=== PATIENT | female | born 1995 | race Caucasian/White ===

== ENCOUNTER 2016-10-18 10:53 | Emergency (ER) | payer BC, OTHER ==
[2016-10-18 11:00] VITALS: BP 110/69; PULSE 89; TEMP 98; BMI 20.5
--- NOTE | 2016-10-18 11:28 | PDOC ---
History of Present Illness - General Chief Complaint: Psychiatric Stated Complaint: SOB Time Seen by Provider: 10/18/16 10:55 History Source: Patient Exam Limitations: No Limitations - History of Present Illness Initial Comments: 10/18/16 11:29 This is a 21-year-old female with a prior history of alcoholism (sober for 2 years) who presents to the emergency department with a complaint of chest pain and shortness of breath. Patient states her symptoms began approximately 9 days ago, while doing nothing in particular. At that time she noted midsternal pressure which she rates 5/10, pain is intermittent, pain associated with shortness of breath. When her symptoms had not improved she was seen at an outside hospital's emergency department 5 days ago. At that time she had labs, chest x-ray, EKG. Patient reports that the chest x-ray showed "constricted lungs". She was discharged on albuterol inhaler which she has been taking every 4 hours. She states the albuterol has minimally helps her symptoms. Patient states that while at home she felt a little bit better but her symptoms never completely resolved. She returned to work today and she noted that her symptoms were very severe. Her coworkers recommended that she have a CAT scan to rule out pulmonary embolism. Patient states that her symptoms worsen with exertion, she has had a cold sweat. She denies nausea or vomiting. She denies recent travel. She denies cough, upper respiratory symptoms. PMH: Alcoholism, anxiety PSH: Denies Medication: buspar, prozac ALL: Azithromycin Social: denies drug use, (+) tobacco use (for the past 3 years, pt decreasing amount, now smoking 6 per day), denies alcohol use GENERAL/CONSTITUTIONAL: No: fever, chills, weakness, loss of appetite. HEAD, EYES, EARS, NOSE AND THROAT: No: change in vision, ear pain, discharge, sore throat, throat swelling. CARDIOVASCULAR: Yes: chest pain, No: lightheadedness, palpitations, syncope RESPIRATORY: Yes:shortness of breath No: cough, wheezing GASTROINTESTINAL: No: nausea, vomiting, abdominal pain GENITOURINARY: No: dysuria, hematuria, frequency, urgency, flank pain. MUSCULOSKELETAL: No: back pain, neck pain, joint pain, muscle swelling or pain SKIN AND BREASTS: No: lesions, pallor, rash or easy bruising. NEUROLOGIC: No: headache, vertigo, paresthesias, weakness ENDOCRINE: No: unexplained weight gain or loss HEMATOLOGIC/LYMPHATIC: No: anemia, easy bleeding, swelling nodes. GENERAL: The patient is in no acute distress, pt appears anxious and breathless. HEAD: Normal with no signs of trauma. EYES: PERRLA, EOMI, sclera anicteric, conjunctiva clear. ENT: Ears normal, nares patent, oropharynx clear without exudates. Moist mucous membranes. NECK: Normal range of motion, supple without lymphadenopathy, JVD, or masses. LUNGS: Breath sounds equal, clear to auscultation bilaterally. No wheezes, and no crackles. HEART:Regular rate and rhythm, normal S1 and S2 without murmur, rub or gallop. Chest wall tendern to palpation ABDOMEN: Soft, nontender, normoactive bowel sounds. No guarding, no rebound. No masses palpable. EXTREMITIES: Normal range of motion, no edema. No clubbing or cyanosis. No erythema, or tenderness. NEUROLOGICAL: Cranial nerves II through XII grossly intact. Normal speech. No focal neurological deficits. MUSCULOSKELETAL: Back non-tender to palpation, no CVA tenderness SKIN: Warm, Dry, normal turgor, no rashes or lesions noted. Past History - Past Medical History Allergies/Adverse Reactions: Allergies Allergy/AdvReac Type Severity Reaction Status Date / Time azithromycin [From Zithromax] Allergy Verified 10/18/16 10:55 Home Medications: Ambulatory Orders Buspirone HCl [Buspar -] 30 mg PO DAILY 10/18/16 Fluoxetine HCl [Prozac] 40 mg PO DAILY 10/18/16 Psychiatric Problems: Yes Other medical history: ALCOHOLISM - Psycho/Social/Smoking Cessation Hx Anxiety: Yes Suicidal Ideation: No Smoking History: Current every day smoker Number of Cigarettes Smoked Daily: 6 Information on smoking cessation initiated: Yes 'Breaking Loose' booklet given: 10/18/16 Hx Alcohol Use: Yes Drug/Substance Use Hx: Yes (ADDERAL) Substance Use Type: Alcohol, Prescribed *Physical Exam - Vital Signs Last Vital Signs Temp Pulse Resp BP Pulse Ox 98 F 89 16 110/69 100 10/18/16 10:54 10/18/16 10:54 10/18/16 10:54 10/18/16 10:54 10/18/16 10:54 Heart Score/ECG Review #1 ECG reviewed & interpreted by me at: 11:35 General ECG Interpretation: Sinus Rhythm, Normal Rate, Normal Intervals, No acute ischemic changes ED Treatment Course - LABORATORY CBC & Chemistry Diagram: 10/18/16 11:30 10/18/16 11:30 Medical Decision Making - Medical Decision Making 10/18/16 11:34 Will do labs including d dimer Will repeat cxr Will re assess Will NOT give an anxiolytic given pt h/o substance abuse 10/18/16 12:19 Laboratory Tests 10/18/16 10/18/16 11:30 11:30 WBC 5.6 Hgb 12.5 Hct 36.3 Plt Count 245 Neutrophils % 59.5 Lymphocytes % 28.8 Sodium 133 L Potassium 3.4 L Chloride 105 Carbon Dioxide 24 BUN 17 Creatinine 0.7 Random Glucose 71 L 10/18/16 12:46 Laboratory Tests 10/18/16 11:30 Creatine Kinase 76 Troponin I < 0.03 L 10/18/16 13:57 Laboratory Tests 10/18/16 10/18/16 10/18/16 11:30 11:30 11:30 WBC 5.6 Hgb 12.5 Hct 36.3 Plt Count 245 Neutrophils % 59.5 Lymphocytes % 28.8 D-Dimer < 200 BUN Creatinine Creatine Kinase Troponin I Serum , Qual Negative 10/18/16 10/18/16 11:30 11:30 WBC Hgb Hct Plt Count Neutrophils % Lymphocytes % D-Dimer BUN 17 Creatinine 0.7 Creatine Kinase 76 Troponin I < 0.03 L Serum , Qual 10/18/16 14:09 Upon re assessment, pt states she continues to feel chest pressure and short of breath Will contact pt PMD Pt mother present with patient, states she has already had an xray which was negative 10/18/16 14:10 10/18/16 15:27 Case reviewed with pt PMD who reports that PT CXR was normal Her impression is that the patients symptoms may be the result of Anxiety Recommended given something for anxiety and follow up Pulm I have reviewed this with the patient She does not want anxiolytics given her history Pt ambulated [id number] remain 100% Will discharge to home Call PMD now for follow up and Pulm referral Clinical Impression: breathlessness 10/18/16 15:39 *DC/Admit/Observation/Transfer Diagnosis at time of Disposition: Shortness of breath - Discharge Dispostion Disposition: HOME Condition at time of disposition: Stable Admit: No - Patient Instructions Printed Discharge Instructions: DI for Shortness of Breath, How to Manage Shortness of Breath Additional Instructions: Josselyn Thank you for coming in to the ER today I am sorry that you are feeling short of breath and having this pain Please contact Dr Andrade for pulmonary follow up today Please follow up with your primary doctor within 3 days Please also follow up with the doctor managing your standing medications Perhaps there is some adjustment that can be made with those medications Please return to the ER for worsening symptoms, new symptoms, any other concerns or complaints - Post Discharge Activity Work/School Note: Back to Work
[2016-10-18 11:45] LABS: BASOPHIL 0.7 % (0-2.0); EOSINOPHIL 2.8 % (0-4.5); MCH 28.3 pg (25.7-33.7); MCHC 34.3 g/dl (32.0-36.0); MEAN CELL VOLUME 82.5 fl (80-96); MEAN PLT VOLUME 8.6 fl (7.5-11.1); NEUTROPHILS 59.5 % (42.8-82.8); PLATELET COUNT 245 K/MM3 (134-434); RDW 12.8 % (11.6-15.6); WHITE BLOOD COUNT 5.6 K/mm3 (4.0-10.0)
[2016-10-18 12:06] LABS: ALBUMIN 3.9 g/dl (3.5-5.0); ALK PHOS 45 U/L (32-92); ANION GAP 4 (8-16); BILIRUBIN,TOTAL 0.5 mg/dl (0.2-1.0); CALCIUM 8.9 mg/dl (8.4-10.2); CO2 24 mmol/L (22-28); CPK(DFH) 76 IU/L (26-140); CREATININE 0.7 mg/dl (0.6-1.3); GLUCOSE,RANDOM 71 mg/dl (74-106); SGOT/AST 28 U/L (10-42); SGPT/ALT 12 U/L (10-40); TOT PROT 6.6 g/dl (6.4-8.3)
[2016-10-18 12:27] LABS: TROPONIN I (DFP) < 0.03 ng/ml (0.03-0.50)
--- NOTE | 2016-10-18 18:42 | EKG ---
Test Reason : Blood Pressure : / mmHG Vent. Rate : 082 BPM Atrial Rate : 082 BPM P-R Int : 136 ms QRS Dur : 084 ms QT Int : 392 ms P-R-T Axes : 067 072 040 degrees QTc Int : 457 ms NORMAL SINUS RHYTHM NORMAL ECG NO PREVIOUS ECGS AVAILABLE Confirmed by TORIBIO GUERRA MD ([id number] on 10/18/2016 6:42:15 PM Referred By: DARRELL FRITZ Confirmed By:TORIBIO GUERRA MD
== END 2016-10-18 16:01 | disposition home or self-care (01) ==
LOC: FER 10:53
DX: R06.02 Shortness of breath (principal); F17.210 Nicotine dependence, cigarettes, uncomplicated; F99 Mental disorder, not otherwise specified; F10.21 Alcohol dependence, in remission
CPT/HCPCS: 36415; 80053; 82550; 84484; 84703; 85025; 85379; 93005; 99283-25